=== PATIENT | male | born 1960 | race Caucasian/White ===

== ENCOUNTER 2021-01-06 05:55 | Emergency (ER) | payer OTHER ==
[~2021-01-06] VITALS: Ht 175.3 cm; Wt 95.3 kg
--- NOTE | 2021-01-06 05:56 | NUR ---
Bib RA 839 from home. Pt. reported to have had a ground level fall because he uses a walker and fell when he was trying to walk without it. Pt did not hit his head or lose consciousness. RA 839 did ekg on scene and it was nsr. BGC on scene was 171. Pt has L side deficit from prior stroke. Pt reported to have hx htn, dbm, heart stent, hx prior strokes. According to RA 839 the pts. and son are on their way.
[2021-01-06 06:37] LABS: MEAN CORPUSCULAR HEMOGLOBIN 29.4 uug (23.8-33.4); MEAN CORPUSCULAR VOLUME 88.1 fL (73.0-96.2); PLATELET COUNT (AUTO) 262 K/uL (152-348)
[2021-01-06 06:45] LABS: CREATININE 1.1 mg/dL (0.6-1.3); POTASSIUM 4.3 mmol/L (3.5-5.1)
[2021-01-06 06:50] LABS: BILIRUBIN,TOTAL 0.6 mg/dL (0.2-1.0); TOTAL PROTEIN, SERUM 6.9 g/dL (6.4-8.2)
--- NOTE | 2021-01-06 07:10 | NUR ---
Received pt in bed, with both eyes closed, NAD noted. Family at the bedside.
--- NOTE | 2021-01-06 08:26 | NUR ---
Patient discharged to home in stable condition. Written and verbal after care instructions given to pt and family. Patient and family verbalize understanding of instructions. Stressed follow up or return to ER for worsening s/s. Pt assissted to son's car via wheelchair.
[2021-01-06 08:28] VITALS: BP 112/60
[2021-01-06 09:33] LABS: EOSINOPHILS % (MANUAL) 2 % (0-8); LYMPHOCYTES % (MANUAL) 36 % (20-40); MONOCYTES % (MANUAL) 8 % (2-10); MYELOCYTES % 1 % (0-0); NEUTROPHILS % (MANUAL) 53 % (42-75)
== END 2021-01-06 08:33 | disposition home or self-care (01) ==
LOC: ER 05:57
DX: R53.1 Weakness (principal); I69.354 Hemiplegia and hemiparesis following cerebral infarction affecting left non-dominant side; R94.31 Abnormal electrocardiogram [ECG] [EKG]; E13.65 Other specified diabetes mellitus with hyperglycemia; E78.5 Hyperlipidemia, unspecified; Z95.5 Presence of coronary angioplasty implant and graft
CPT/HCPCS: 36415; 70030-TC; 85025; 93005; A4663